=== PATIENT | female | born 1970 | race Caucasian/White ===

== ENCOUNTER 2020-06-16 11:45 | Outpatient (CLI) | payer BC, SELFPAY ==
--- NOTE | ~2020-06-16 | XR_ITS ---
XR wrist LT w scaphoid DATE: 06/16/2020 12:00 INDICATION: Left wrist pain TECHNIQUE: 5 views COMPARISON: None FINDINGS: No fracture or dislocation, periosteal reaction or bone destruction. Joint spaces are prese rved. No erosive change or chondrocalcinosis. IMPRESSION: Negative Reviewed, dictated and finalized at location A. IMPRESSION: Negative
== END 2020-06-16 11:46 | disposition home or self-care (01) ==
PROVIDERS: PCP Family Medicine; Visit Provider Physician Assistant
DX: M25.532 Pain in left wrist (principal)
CPT/HCPCS: 73110

== ENCOUNTER → 2020-12-14 00:11 | Outpatient (CLI) | payer BC, SELFPAY ==
[2020-12-14 19:29] LABS: SARS-CoV-2 RNA PCR Negative
== END ==
PROVIDERS: PCP Family Medicine; Visit Provider Orthopaedic Surgery
DX: Z01.812 Encounter for preprocedural laboratory examination (principal); Z20.822 Contact with and (suspected) exposure to COVID-19
CPT/HCPCS: C9803; U0003; U0005

== ENCOUNTER 2020-12-17 01:25 | Day surgery (SDC) | payer BC, SELFPAY ==
--- NOTE | ~2020-12-17 | XR_ITS ---
EXAMINATION: XR surgery orthopedic DATE: 12/17/2020 08:18 INDICATION: Left wrist release for de Quervain's tenosynovitis TECHNIQUE: 3 fluoroscopic images of the left wrist were obtained during procedure performed by Dr. Yordy matthew. Radiologist was not present for the imaging or procedure. The amount of fluoroscopy time used during this procedure was 0.1 minutes. COMPARISON: None. FINDINGS: Bone alignment is normal. No fracture. Joint spaces are normal. Images demonstrate small amount of li domenico postoperative gas in the soft tissues along the radial aspect of the wrist. IMPRESSION: 1. Fluoroscopy utilized during orthopedic procedure at the left wrist. Bones are unremarkable. See pr ocedure note for further detail. Reviewed, dictated and finalized at location B. IMPRESSION: 1. Fluoroscopy utilized during orthopedic procedure at the left wrist. Bones ar e unremarkable. See procedure note for further detail.
[2020-12-17] MEDS: LACTATED RINGERS 1,000 ML 30 ML IV CONT (06:45)
[2020-12-17] MEDS: KETOROLAC 15 MG/ML VIAL (*BKC) IV PUSH (06:48)
[2020-12-17] MEDS: ACETAMINOPHEN 500 MG TABLET 1000 MG PO (06:49)
--- NOTE | 2020-12-17 06:54 | WPDANESEPP ---
Anes - Eval Pre Procedure Procedure: Operation Date: 12/17/20 07:30 Proposed Procedures p Release Left Wrist Dequervain's - Santi Phan MD Date/Time: 12/17/20 06:54 Pre Op Diagnosis: left dequervain's tenosynovitis Patient Data Age: 50 Gender: F Height: 5 ft 5 in Weight: 82 kg Allergies Allergy/AdvReac Type Severity Reaction Status Date / Time oxycodone AdvReac Unknown vomiting Verified 12/07/20 08:22 Home Medications Medication Instructions Recorded Confirmed Type levonorgestrel 20 mcg/24 hours (6 1 device I-UTERINE ONCE 06/16/20 12/07/20 History yrs) 52 mg intrauterine device diclofenac sodium 75 mg 75 mg PO BID PRN #60 tablet 08/26/20 12/07/20 Rx tablet,delayed release Patient hx anesthesia problems: none Family hx anesthesia problems: none PMFSH Past Medical History Medical History De Quervain's disease (radial styloid tenosynovitis) History of essential hypertension Left wrist pain Mixed hyperlipidemia Obesity Surgical History Surgical History History of appendectomy S/P tonsillectomy Family History Family History Sibling Diabetes mellitus Hypertension Father Heart disease Grandparent Carcinoma of colon Breast cancer Sibling Diabetes mellitus Father Hypertension Other Family history of arthritis Family history of premature coronary heart disease Social History Social History Social History: Smoking packs per day: 1 Smoking cigarettes per day: 20.0 Second hand tobacco smoke exposure: No Smoking end date: 09/11/87 Alcohol intake: current Substance use: never Substance use type: does not use Living arrangements: with family Gender identity (if verbalized by the patient): Female Spiritual care concerns: No Exam Day of Procedure 12/17/20 06:54
[2020-12-17 07:11] VITALS: BP 147/92; PULSE 83; RESP 18; TEMP 36.6; O2SAT 98
--- NOTE | 2020-12-17 07:14 | WPDANESEPPF ---
Anes - Initial Pre Proc Eval Procedure: Operation Date: 12/17/20 07:30 Proposed Procedures p Release Left Wrist Dequervain's - Santi Phan MD Date/Time: 12/17/20 07:14 Surgeon: Santi Phan MD Pre Op Diagnosis: left dequervain's tenosynovitis Patient Data Age: 50 Gender: F Height: 5 ft 5 in Weight: 82.8 kg Last Vital Signs Temp 97.8 F 12/17/20 07:11 Pulse 83 12/17/20 07:11 Resp 18 12/17/20 07:11 BP 147/92 H 12/17/20 07:11 Pulse Ox 98 12/17/20 07:11 Allergies Allergy/AdvReac Type Severity Reaction Status Date / Time oxycodone AdvReac Unknown vomiting Verified 12/17/20 07:06 Home Medications Medication Instructions Recorded Confirmed Type levonorgestrel 20 mcg/24 hours (6 1 device I-UTERINE ONCE 06/16/20 12/07/20 History yrs) 52 mg intrauterine device diclofenac sodium 75 mg 75 mg PO BID PRN #60 tablet 08/26/20 12/17/20 Rx tablet,delayed release Patient hx anesthesia problems: none Family hx anesthesia problems: none PMFSH Past Medical History Medical History De Quervain's disease (radial styloid tenosynovitis) History of essential hypertension Left wrist pain Mixed hyperlipidemia Obesity Surgical History Surgical History History of appendectomy S/P tonsillectomy Family History Family History Sibling Diabetes mellitus Hypertension Father Heart disease Grandparent Carcinoma of colon Breast cancer Sibling Diabetes mellitus Father Hypertension Other Family history of arthritis Family history of premature coronary heart disease Social History Social History Social History: Smoking packs per day: 1 Smoking cigarettes per day: 20.0 Second hand tobacco smoke exposure: No Smoking end date: 09/11/87 Alcohol intake: current Substance use: never Substance use type: does not use Living arrangements: with family Gender identity (if verbalized by the patient): Female Spiritual care concerns: No Anes - Eval Final PreProcedure Day of Procedure 12/17/20 07:14 Patient weight: overweight Heart: regular rate and rhythm Lungs: clear to auscultation Airway: Mallampati scale class II Neurological: alert and oriented Last oral intake: >/= 8 hours ASA classification: II Emergent: no Anesthetic plan: proceed Anesthesia type and monitoring: general LMA and standard monitoring Informed Consent: The patient's anesthetic plan and its attendant risks and benefits were discussed with the patient/family/POA. Questions were solicited and answers provided to the satisfaction of the patient/family/POA.
--- NOTE | 2020-12-17 07:14 | WPDHPUPDATE1 ---
History and Physical Update Update Date/Time: 12/17/20 07:14 History and Physical has been reviewed, including an updated exam of the patient. There are NO changes in the patient's condition. Covid test negative. Risks, benefits, and alternatives have been discussed and questions answered. Patient agrees to proceed with procedure.
[2020-12-17] MEDS: ceFAZolin 2 GM/D5W 50 ML 2 GM/50 ML BAG IVPB (07:28)
[2020-12-17] MEDS: BUPIVACAINE HCL 0.5% PF 30 ML VIAL INFILTRATE (07:53)
[2020-12-17 08:25] VITALS: BP 127/87; PULSE 74; RESP 10; TEMP 36.2; O2SAT 100
--- NOTE | 2020-12-17 08:25 | PM.PROC ---
Procedure Note - Detailed Date of procedure: 12/17/20 Pre-op diagnosis: left dequervain's tenosynovitis Post-op diagnosis: same Procedure performed: Release of left wrist 1st dorsal compartment with debridement. Description of procedure: Indications: Patient is a 50-year-old woman with left wrist pain and 1st dorsal compartment tenosynovitis. Patient has had previous cortisone injection which confirmed diagnosis but was temporary relief of symptoms. She also has prominence over the area. She presents now for operative treatment. What was done: Patient identified in the preoperative holding. Informed consent given. Operative extremity marked. Patient received intravenous antibiotics. Patient brought to the operating room where underwent general anesthetic by anesthesia team. Positioned supine on operating room table. Time-out performed confirming the patient, site of the surgery and the plan. Left upper extremity prepped and draped usual sterile surgical fashion using a ChloraPrep skin solution. Hand and wrist exsanguinated and an arm tourniquet inflated to 225 mmHg. Local infiltrate with 0.5% Marcaine plain. Oblique incision made over the 1st dorsal compartment with a 15 blade knife. Hemostasis controlled electrocautery. Care taken to identify and isolate the branches of the radial sensory nerve. A ganglion type cystic structure was then encountered over the 1st dorsal compartment. This was freed up bluntly from the soft tissue and was noted to be coming from the retinaculum. This was excised and passed off as specimen. The retinaculum over the 1st dorsal compartment was noted to be hypertrophied was released longitudinally under direct visualization proximally and distally. The extensor tendons 1st dorsal compartment were then inspected. There was moderate tenosynovitis which was sharply removed. Tendons were then noted to be freely mobile. Image intensification was brought in and confirmed no further bone spurs or bony abnormality. Wound was thoroughly irrigated and closed with 4 O nylon interrupted suture. Sterile dressing applied. The patient was then woken from anesthesia, extubated and taken to the recovery room in stable condition. All sponge, needle, instrument counts were correct at the end of the case. Anesthesia: GLMA Surgeon: Santi Phan MD Transit Worker: personal injury legal assistant Estimated blood loss (mL): 5 Tourniquet time (min): 25 Drains: No Packing: No Pathology: yes (Cystic structure from the dorsal retinaculum specimen) Complications: None Condition: stable Disposition: PACU
[2020-12-17 08:40] VITALS: BP 127/84; PULSE 66; RESP 12; O2SAT 98
[2020-12-17 08:55] VITALS: BP 132/83; PULSE 60; RESP 12; O2SAT 98
[2020-12-17 09:00] VITALS: BP 125/81; PULSE 61; RESP 16
[2020-12-17 09:30] VITALS: BP 122/69; PULSE 57; RESP 14
== END 2020-12-17 09:55 | disposition home or self-care (01) ==
PROVIDERS: PCP Family Medicine; Visit Provider Orthopaedic Surgery
PROC: (CPT 25000; principal; 2020-12-17 07:30)
DX: M65.4 Radial styloid tenosynovitis [de Quervain] (principal); E78.2 Mixed hyperlipidemia; E66.9 Obesity, unspecified; Z68.30 Body mass index [BMI] 30.0-30.9, adult; Z87.891 Personal history of nicotine dependence
CPT/HCPCS: 25000; 88304; A9270; J0690; J1885; J2250; J2405; J2704; J3010; J7120

== ENCOUNTER 2022-01-26 08:03 | Emergency (ER) | payer BC, SELFPAY ==
[2022-01-26 08:12] VITALS: BP 143/88; PULSE 107; RESP 18; TEMP 35.6; O2SAT 100
--- NOTE | 2022-01-26 08:14 | ED.URI ---
HPI - URI/Sore Throat General Chief Complaint: Upper Respiratory Infection Stated Complaint: sore throat/congestion/cough Time Seen by Provider: 01/26/22 08:15 Source: patient and RN notes reviewed Mode of arrival: ambulatory Limitations: no limitations History of Present Illness HPI Narrative: 51-year-old female presented for complaint of sinus congestion, cough, and sore throat for about 5 days. Cough is nonproductive. Endorses hoarse voice, fevers and chills yesterday. She has been taking [id number] Mucinex and Robitussin without relief. She denies associated chest pain, shortness of breath, wheezing, nausea, vomiting, diarrhea. She is not boosted for covid, she had covid 09/2021; she is vaccinated for flu. MD elicited complaint: cough Related Data Home Medications Medication Instructions Recorded Confirmed levonorgestrel 20 mcg/24 hours (7 1 device I-UTERINE ONCE 06/16/20 01/26/22 yrs) 52 mg intrauterine device Allergies Allergy/AdvReac Type Severity Reaction Status Date / Time hydrocodone [From [place]] AdvReac Vomiting Verified 01/26/22 08:15 Review of Systems Review of Systems: CONSTITUTIONAL: Endorses chills, fever EYES: Denies visual changes, redness, or discharge ENT: Reports rhinorrhea, congestion, sinus pain, sore throat CARDIOVASCULAR: Denies chest pain, palpitations, edema RESPIRATORY: Reports cough, post nasal drainage. Denies dyspnea GASTROINTESTINAL: Denies abdominal pain, nausea, vomiting, diarrhea SKIN: Denies rash or itching MUSCULOSKELETAL: Denies myalgia NEUROLOGIC: Denies headache PMFSH Past Medical History Medical History De Quervain's disease (radial styloid tenosynovitis) History of essential hypertension Left wrist pain Mixed hyperlipidemia Obesity Surgical History Surgical History History of appendectomy S/P tonsillectomy Family History Family History Sibling Diabetes mellitus Hypertension Father Heart disease Grandparent Carcinoma of colon Breast cancer Sibling Diabetes mellitus Father Hypertension Other Family history of arthritis Family history of premature coronary heart disease Social History Social History Social History: Smoking packs per day: 1 Smoking cigarettes per day: 20.0 Smoking status: Former smoker Tobacco type: cigarettes Second hand tobacco smoke exposure: No Smoking end date: 09/11/87 Alcohol intake: current Alcohol use details: 2-3 per week Substance use: never Substance use type: does not use Gender identity (if verbalized by the patient): Female Sexual Orientation (if Verbalized by the Patient): Straight or Heterosexual Spiritual care concerns: No Exam Narrative: GENERAL: Ill-appearing, nontoxic HEAD: Normocephalic EYES: conjunctivae clear ENT: Mucous membranes moist. TM pearly leong with dull light reflex and erythematous canals bilaterally; no tragal tenderness. Oropharynx erythematous without lesions or exudate, tonsils and uvula absent; no drooling, no hoarseness, no trismus, uvula midline. No tripod positioning, muffled voice, soft palate or pharyngeal wall bulging NECK: Supple. No lymphadenopathy CHEST: Clear to auscultation, breath sounds equal. No wheezing, rhonchi, rales, or stridor. No respiratory distress, speaks in full sentences. HEART: Regular rate and rhythm. No murmur heard. SKIN: Warm, dry, no rash. NEURO: Alert and oriented x3. PSYCH: Normal mood and affect Course Course Emergency Course: Patient is aware of diagnosis, understands and agrees to treatment plan. Anticipatory guidance given. Patient agrees to follow-up as directed and is aware of reasons to seek care at the emergency department. Portions of this record may have been c
== END 2022-01-26 08:47 | disposition home or self-care (01) ==
PROVIDERS: Emergency Provider Nurse Practitioner Family; PCP Family Medicine
DX: J30.2 Other seasonal allergic rhinitis (principal); Z20.822 Contact with and (suspected) exposure to COVID-19; Z87.891 Personal history of nicotine dependence; I10 Essential (primary) hypertension; E78.2 Mixed hyperlipidemia; E66.9 Obesity, unspecified; Z68.33 Body mass index [BMI] 33.0-33.9, adult
CPT/HCPCS: 87081; 87426; 87804; 87880; 99213; C9803; G0463

== ENCOUNTER → 2022-03-10 15:58 | Outpatient (CLI) | payer BC, SELFPAY ==
--- NOTE | ~2022-03-10 | MM_ITS ---
EXAMINATION: MM screening monica BI w maggi HISTORY: Screening TECHNIQUE: Craniocaudal and mediolateral oblique 3-D tomosynthesis images were obtained and synthetic 2-D images were generated. CAD analysis was submitted and interpreted. COMPARISON: 03/26/2018 BREAST PARENCHYMAL COMPOSITION: There are scattered areas of fibroglandular density. FINDINGS: There is no evidence of suspicious mass, calcification, or architectural distortion to sugg est malignancy in either breast. There has been no suspicious interval change. IMPRESSION: 1. No mammographic evidence of malignancy. 2. Recommend routine screening mammography in one year. BI-RADS Category 1: Negative Reviewed, dictated and finalized at location A.
== END ==
PROVIDERS: PCP Family Medicine; Visit Provider Family Medicine
DX: Z12.31 Encounter for screening mammogram for malignant neoplasm of breast (principal)
CPT/HCPCS: 77063; 77067